=== PATIENT | female | born 1945 | race Asian ===

== ENCOUNTER 2017-12-19 21:40 | Inpatient (IN) | END 2017-12-25 21:50 | DRG 481 ==

== ENCOUNTER 2017-12-25 21:55 | Inpatient (IN) | END 2018-01-06 09:45 | disposition home health service (06) | DRG 560 ==

== ENCOUNTER 2018-02-11 17:43 | Inpatient (IN) | END 2018-02-18 11:06 | DRG 481 ==

== ENCOUNTER 2018-02-18 11:15 | Inpatient (IN) | END 2018-03-01 11:00 | disposition home health service (06) | DRG 561 ==